=== PATIENT | male | born 1945 | race Caucasian/White ===

== ENCOUNTER 2024-09-05 08:26 | Day surgery (SDC) | payer OTHER, SELFPAY ==
--- NOTE | 2024-09-05 | PATH_ITS ---
[facility] Accession Number: [id number] No. of containers..03 Tissue . 01 Material submitted: . PART A: ileo-cecal valve - ILEOCECAL VALVE PART B: colon - ASCENDING PART C: colon - RECTAL . 01 Diagnosis: A. ILEOCECAL VALVE, BIOPSY: Ileocolonic mucosa with no diagnostic abnormality. Negative for active, chronic, and microscopic colitis. Negative for dysplasia and malignancy. . B. ASCENDING COLON, BIOPSY: Fragments of tubular adenoma. . C. RECTUM, BIOPSY: Hyperplastic polyp. DONNA 09/09/2024 1033 Local . 01 Electronically signed: . Domingo Pradhan MD, PhD, Pathologist NPI- [id number] . 01 Gross description: . A. Received in formalin with two patient identifiers and ileocecal valve biopsy, are two mcduffie soft tissue fragments both measuring 0.3 cm in greatest dimension. Submitted in cassette A1. B. Received in formalin with two patient identifiers and ascending colon, are three mcduffie soft tissue fragments 0.3 to 0.5 cm in greatest dimension. Submitted in cassette B1. C. Received in formalin with two patient identifiers and rectal, is a single mcduffie soft tissue fragment 0.3 cm in greatest dimension. Submitted in cassette C1. ([id number]) /DONNA 09/08/2024 1031 Local . 01 Pathologist provided ICD-10: D12.2, K62.1, Z85.038 . 01 CPT . 465717, 871248, 329240 Specimen Comment: A courtesy copy of this report has been sent to [phone] Performed at: [address] [address], [place], [place] [id number] MD Lionel Shoemaker MD Phone: [phone]
[2024-09-05 09:04] VITALS: BP 148/86; PULSE 84; RESP 16; TEMP 36.4; O2SAT 95
--- NOTE | 2024-09-05 09:32 | P.HP_ITS ---
History of Present Illness History of Present Illness Date Patient Seen: 09/05/24 Time Patient Seen: 09:32 Chief complaint: Colonoscopy Narrative: 79-year-old male with a personal history of colon cancer and colon polyps status post segmental colectomy. He also has a family history of colon cancer. His last exam was about 5 years ago. He reports for colonoscopy today. [facility] Social History Smoking Status: Former smoker Smokeless tobacco user: chewing tobacco (FORMER ) alcohol intake: former substance use type: does not use Meds Home Medications and Allergies Home Medications Medication Instructions Recorded Confirmed Type acyclovir 5 % topical cream 1 applic topical 5XD SKIN 06/10/24 06/10/24 Rx (Zovirax) ERUPTIONS #5 grams amlodipine 5 mg tablet 5 mg PO DAILY #90 tabs 06/10/24 06/10/24 Rx fluticasone propionate 50 1 spray intranasal DAILY 06/10/24 06/10/24 Rx mcg/actuation nasal GRASS/POLLEN ALLERGY #16 grams spray,suspension metformin 1,000 mg tablet 1,000 mg PO BIDWMEAL #180 tabs 06/10/24 06/10/24 Rx simvastatin 10 mg tablet 10 mg PO DAILY HIGH CHOLESTEROL 07/08/24 Rx #90 tabs telmisartan 80 mg tablet 80 mg PO DAILY BLOOD PRESSURE #90 07/08/24 Rx tabs Allergies Allergy/AdvReac Type Severity Reaction Status Date / Time No Known Drug Allergies Allergy Verified 09/05/24 09:01 Review of Systems Review of Systems ROS: Yes All systems reviewed with the patient and are negative except as otherwise documented Exam Vital Signs (past 8 hours): - 09/05/24 09:04 Temperature 97.5 F L Pulse Rate 84 Respiratory Rate 16 Blood Pressure 148/86 H Pulse Oximetry 95 Oxygen Delivery Method Room Air Oxygen Delivery Method Room Air Const General: cooperative HENMT Head: normal to inspection Eyes General: appearance normal, both eyes and all related structures Neck Neck: normal visual inspection Chest Chest: normal inspection of the chest Resp Effort & Inspection: normal respiratory effort Cardio Rate: regular rate GI Inspection: normal to inspection Skin General: no rashes or lesions noted Neuro General: patient alert and patient awake Extrem General: normal to inspection and no pedal edema Psych Appearance: grossly normal Assessment & Plan Assessment & Plan narrative: 79-year-old male with a family history of colon cancer, personal history of colon cancer and colon polyps reporting for updated colonoscopy. Time-Based Coding :: [TOTAL MINUTES] spent with patient and on the chart (including review of chart, obtaining history, exam, reviewing outside data, placing orders, documenting exam and treatment plan, and counseling patient) on [DATE].
--- NOTE | 2024-09-05 09:34 | PM.PREOP ---
Pre-operative Note Interval Note History & Physical reviewed/Exam performed by Physician: Yes Changes to H&P: No ASA Class (for procedural sedation): II
--- NOTE | 2024-09-05 10:59 | P.OP.COLON_ITS ---
Operative Date/Time/Diagnoses Date of procedure: 09/05/24 Time of procedure: 10:59 Pre-op diagnosis: Personal history of colon cancer and colon polyps. Family history of colon cancer. Post-op diagnosis: same Procedure & Clinicians Study performed: Colonoscopy with hot snare polypectomy and cold forceps polypectomy Indications: Personal history of colon cancer and colon polyps. Family history of colon cancer. Surgeon: Maury Georges Procedure Notes SCOAP/Timeout: Done Procedure in detail: After the risks and benefits were explained, written and verbal informed consent was obtained. The patient was brought into the procedure room and placed into the left lateral decubitus position. Please see anesthesia notes for sedation details. Digital rectal examination was accomplished. The scope was introduced into the patient and advanced under direct visualization to the cecum as identified by the appendiceal orifice and ileocecal valve. The scope was slowly withdrawn to carefully examine the mucosa for any defects or lesions. Compr ehensive imaging was accomplished throughout the rectum including the dentate line. The colon was decompressed, the scope was then removed from the patient who tolerated the procedure well. Adult colonoscope Bowel prep adequate Scope withdrawal time: 19 minutes Sedation minutes: 29 Complications: none Impression: The patient had evidence of grade 2 internal hemorrhoids. In the left colon there was some diverticulosis. At about 45 cm from the anal verge there was a patent end-to-side colo colonic anastomosis. The ileocecal valve and cecum was at an unusual location in the right upper quadrant. It was therefore difficult to get a full look up into the terminal ileum proper. There was a small polypoid structure right at the lip of the ileocecal valve which was addressed with cold forceps. In the ascending colon there was a 7 mm sessile polyp removed with hot snare and a 4 mm polyp removed with cold snare. In the rectum there was a 4 mm polyp also removed with cold snare. No additional pathology was appreciated. Endoscopic diagnosis 1. Colon polyps 2. Patent colocolonic anastomosis 3. Diverticulosis 4. Grade 2 internal hemorrhoids 5. Ileocecal valve polyp Post-procedure Plan for aftercare: 1. Await histology. 2. Contingent on pathology results, consider surveillance colonoscopy in 3 years. Disposition: PACU
[2024-09-05 11:02] VITALS: BP 131/61; PULSE 72; RESP 15; TEMP 37.2; O2SAT 99
[2024-09-05 11:09] VITALS: BP 122/72; PULSE 76; RESP 14; TEMP 37.1; O2SAT 99
[2024-09-05 11:13] VITALS: BP 137/70; PULSE 69; RESP 15; TEMP 37.1; O2SAT 98
== END 2024-09-05 11:26 | disposition home or self-care (01) ==
PROVIDERS: PCP Family Medicine; Referring Provider Internal Medicine Gastroenterology; Visit Provider Internal Medicine Gastroenterology
PROC: 0DJD8ZZ Inspection of Lower Intestinal Tract, Via Natural or Artificial Opening Endoscopic (ICD-10-PCS; CPT 45378; principal; 2024-09-05 09:30)
DX: Z12.11 Encounter for screening for malignant neoplasm of colon (principal); Z85.038 Personal history of other malignant neoplasm of large intestine; Z86.0100 Personal history of colon polyps, unspecified; Z80.0 Family history of malignant neoplasm of digestive organs; K57.30 Diverticulosis of large intestine without perforation or abscess without bleeding; K64.1 Second degree hemorrhoids; D12.2 Benign neoplasm of ascending colon; K62.1 Rectal polyp
CPT/HCPCS: 45385; 45380; J2704